=== PATIENT | male | born 1970 | race Caucasian/White ===

== ENCOUNTER 2021-06-29 22:43 | Emergency (ER) | payer OTHER, SELFPAY ==
[2021-06-29 22:44] VITALS: BP 140/94; PULSE 128; RESP 19; TEMP 37.3; O2SAT 93; BMI 45.3
[2021-06-29 22:45] VITALS: BP 140/94; PULSE 128; RESP 19; TEMP 37.3; O2SAT 93
--- NOTE | 2021-06-29 22:55 | EKG12_ITS ---
Test Reason : NAUSEA Blood Pressure : / mmHG Vent. Rate : 119 BPM Atrial Rate : 119 BPM P-R Int : 144 ms QRS Dur : 090 ms QT Int : 310 ms P-R-T Axes : 005 -35 023 degrees QTc Int : 436 ms Sinus tachycardia Left axis deviation Poor R wave progression Abnormal ECG Confirmed by SERA DOMINGO, LILIYA ([id number]), photographic editor KATHARINA MOSES ([id number]) on 07/02/2021 10:49:59 AM Referred By: ARI Confirmed By:LILIYA ZAMORA MD
--- NOTE | 2021-06-29 22:56 | ED.VIS.DYS ---
HPI <Dr. Isak Madsen DO - Last Filed: 06/30/21 00:09> History of Present Illness Chief Complaint: Cough Informant: patient and spouse/S.O. Narrative Narrative: 50-year-old male arrives to the emergency department chief complaint of COVID-19. He states he tested positive on his first day of symptoms on 1029 at [facility] [employer]. He reports that he is supposed to come to the hospital tomorrow and received a monoclonal antibody infusion. He did not receive a Covid vaccination. He tells me that since his diagnosis his signs and symptoms of just been worsening. His states that his cough is very rough. He notes his mouth is dry. Been having fevers body aches headaches. [facility] <Dr. Isak Madsen DO - Last Filed: 06/30/21 00:09> [facility] Medical History (Updated 06/30/21 @ 01:[address] Vineet Foley MD) COVID-19 Hypertension Home Medications albuterol sulfate [Ventolin HFA] 2 puff INHALATION Q4H PRN PRN #1 inhaler 06/29/21 [Rx Last Taken Unknown] dexamethasone 6 mg PO DAILY #5 tab 06/29/21 [Rx Last Taken Unknown] lisinopril 40 mg DAILY 06/29/21 [History Last Taken Unknown] Allergy/AdvReac Type Severity Reaction Status Date / Time Penicillins Allergy unknown Verified 06/29/21 15:54 Social History (Updated 06/29/21 @ 22:[address] Isak Madsen DO) Smoking Status: Never smoker substance use type: does not use ROS <Dr. Isak Madsen DO - Last Filed: 06/30/21 00:09> ROS ED Constitutional Constitutional ED: Reports chills, fever(s) and sweats; Denies weight loss Eyes Eyes: Denies change in vision or diplopia ENT ENT ED: Reports sore throat; Denies ear pain or rhinorrhea Cardiovascular Cardiovascular: Denies chest pain, orthopnea, palpitations or racing heartbeat Respiratory/Chest Respiratory/Chest: Reports cough, dyspnea and dyspnea on exertion; Denies orthopnea Gastrointestinal Gastrointestinal: Reports diarrhea and nausea; Denies abdominal pain or vomiting Genitourinary Genitourinary ED: Denies dysuria, hematuria or urinary frequency Musculoskeletal Musculoskeletal: Reports myalgias; Denies arthralgias Integumentary Denies abscess or rash Neurologic Neurologic: Reports headache(s); Denies weakness Psychiatric Psychiatric: Denies anxiety, depression, suicidal ideation or suicidal thoughts Endocrine Endocrinology: Denies polydipsia, polyphagia or polyuria Allergic/Immunologic Allergic/Immunologic ED: Denies mouth swelling, tongue swelling or urticaria EXAM <Dr. Isak Madsen DO - Last Filed: 06/30/21 00:09> Physical Exam Const Vital Signs: 06/29/21 22:44 06/29/21 22:45 06/29/21 23:31 Temperature 99.2 F H 99.2 F H Temperature Source Temporal Temporal Pulse Rate 128 H 128 H 120 H Respiratory Rate 19 H 19 H 17 Blood Pressure 140/94 H 140/94 H 119/87 H Blood Pressure Mean 109 109 97 Pulse Ox 93 93 95 Oxygen Delivery Method Room Air Room Air Room Air 06/30/21 00:05 06/30/21 01:19 Temperature 99.4 F H 99.4 F H Temperature Source Temporal Temporal Pulse Rate 117 H 116 H Respiratory Rate 19 H 28 H Blood Pressure 131/85 H 105/89 H Blood Pressure Mean 100 94 Pulse Ox 94 90 Oxygen Delivery Method Room Air Room Air Positive well nourished, well developed and obese General Appearance ED: well developed Nutritional Appearance: obese HEENT Reports normocephalic, head/scalp atraumatic, TM's clear and moist mucous membranes atraumatic Tympanic Membrane ED: Yes TM's clear Eyes PERRL and EOMs intact bilaterally Neck no lymphadenopathy, supple and no JVD Resp normal respiratory effort and clear to auscultation bilaterally Cardio regular rhythm and no murmurs Rate: tachycardic GI normal to inspection, nondistended, normoactive bowel sounds and non-tender Palpation: soft Back/Spine no CVA tenderness and normal ROM Extremity normal to inspection General Extremety ED: Negative for edema General Extremity: Negative for edema Neuro oriented x3 and CN's II-XII intact bilaterally Sensorium / Orientation: alert Motor Exam: strength 5/5 throughout Psych mental status grossly normal Mood & Affect: Negative for depressed or tearful Skin no rashes or lesions noted and no wounds <Dr. Vineet Foley MD - Last Filed: 06/30/21 01:52> Physical Exam Const Vital Signs: 06/29/21 22:44 06/29/21 22:45 06/29/21 23:31 Temperature 99.2 F H 99.2 F H Temperature Source Temporal Temporal Pulse Rate 128 H 128 H 120 H Respiratory Rate 19 H 19 H 17 Blood Pressure 140/94 H 140/94 H 119/87 H Blood Pressure Mean 109 109 97 Pulse Ox 93 93 95 Oxygen Delivery Method Room Air Room Air Room Air 06/30/21 00:05 06/30/21 01:19 Temperature 99.4 F H 99.4 F H Temperature Source Temporal Temporal Pulse Rate 117 H 116 H Respiratory Rate 19 H 28 H Blood Pressure 131/85 H 105/89 H Blood Pressure Mean 100 94 Pulse Ox 94 90 Oxygen Delivery Method Room Air Room Air [facility] <Dr. Isak Madsen, DO - Last Filed: 06/30/21 00:09> [facility] Lab Data Labs: Laboratory Results - last 24 hr 06/29/21 06/29/21 23:35 23:35 WBC 6.7 RBC 5.29 Hgb 16.0 Hct 47.9 MCV 90.5 MCH 30.2 MCHC 33.4 RDW Std Deviation 44.4 H RDW Coeff of Delfino 13.2 Plt Count 241 MPV 9.5 Immature Gran % (Auto) 0.900 Neut % (Auto) 72.2 H Lymph % (Auto) 16.1 L Hubbard % (Auto) 9.9 Eos % (Auto) 0.3 Baso % (Auto) 0.6 Absolute Neuts (auto) 4.8 Absolute Lymphs (auto) 1.08 Nucleated RBC % 0 Sodium 133 L Potassium 4.3 Chloride 99 Carbon Dioxide 27.0 Anion Gap 7 BUN 11 Creatinine 0.94 Estim Creat Clear Calc 97.07 Est GFR (MDRD) Af Amer 110 Est GFR (MDRD) Non-Af 91 BUN/Creatinine Ratio 11.8 Glucose 120 H Calcium 8.3 L Total Bilirubin 0.50 AST 46 H ALT 59 Alkaline Phosphatase 72 Troponin I High Sens 10 Total Protein 7.1 Albumin 2.7 L Globulin 4.4 H Albumin/Globulin Ratio 0.6 L Radiography Diagnostic Testing: Clinical Impression(s) from Imaging Studies Chest CTA 06/30/21 00:00 IMPRESSION: Negative CTA chest examination, without a demonstrated pulmonary embolism or arterial dissection. Diffuse multifocal bilateral pneumonitis. Electronically Signed: Tri Noriega MD at 0:50 EDT , Service support , EKG Initial EKG: Attestation: I personally reviewed and interpreted this EKG as follows: Comments: Sinus tachycardia with a ventricular rate of 119 bpm. <Dr. Vineet Foley MD - Last Filed: 06/30/21 01:52> [facility] MDM Narrative Medical decision making narrative: Patient checked out to me, his CT angiography of the chest shows no pulmonary embolus, he does have Covid pneumonitis bilaterally likely explaining his tachycardia which is down now to the 110-115 range. His fever was probably also contributing although it was just low-grade. His oxygen levels maintained in the 90s, although they are in the low 90s. At this point however, he does still meet criteria for the monoclonal antibody infusion which is scheduled for tomorrow. I advised him and the to get a home pulse oximeter so they can watch his oxygen levels and we discussed reasons to return for reevaluation, they are comfortable with that plan. Lab Data Attestation: I reviewed the patient's lab results. Labs: Laboratory Results - last 24 hr 06/29/21 06/29/21 23:35 23:35 WBC 6.7 RBC 5.29 Hgb 16.0 Hct 47.9 MCV 90.5 MCH 30.2 MCHC 33.4 RDW Std Deviation 44.4 H RDW Coeff of Delfino 13.2 Plt Count 241 MPV 9.5 Immature Gran % (Auto) 0.900 Neut % (Auto) 72.2 H Lymph % (Auto) 16.1 L Hubbard % (Auto) 9.9 Eos % (Auto) 0.3 Baso % (Auto) 0.6 Absolute Neuts (auto) 4.8 Absolute Lymphs (auto) 1.08 Nucleated RBC % 0 Sodium 133 L Potassium 4.3 Chloride 99 Carbon Dioxide 27.0 Anion Gap 7 BUN 11 Creatinine 0.94 Estim Creat Clear Calc 97.07 Est GFR (MDRD) Af Amer 110 Est GFR (MDRD) Non-Af 91 BUN/Creatinine Ratio 11.8 Glucose 120 H Calcium 8.3 L Total Bilirubin 0.50 AST 46 H ALT 59 Alkaline Phosphatase 72 Troponin I High Sens 10 Total Protein 7.1 Albumin 2.7 L Globulin 4.4 H Albumin/Globulin Ratio 0.6 L Radiography Diagnostic Testing: Clinical Impression(s) from Imaging Studies Chest CTA 06/30/21 00:00 IMPRESSION: Negative CTA chest examination, without a demonstrated pulmonary embolism or arterial dissection. Diffuse multifocal bilateral pneumonitis. Electronically Signed: Tri Noriega MD at 0:50 EDT , Service support , Discharge Plan Triage Chief Complaint: Cough ED Provider: Isak Madsen Dx/Rx/DC Orders Clinical Impression: Pneumonia due to COVID-19 virus Instructions: Coronavirus Disease 2019 (COVID-19): Caring for Yourself or Others Prescriptions: New dexamethasone 6 MG tablet 6 mg PO DAILY Qty: 5 RF: 0 albuterol sulfate [Ventolin HFA] 1 INHALER inhaler 2 puff inhalation Q4H PRN PRN (Reason: Wheezing) Qty: 1 RF: 0 No Action lisinopril 40 mg tablet 40 mg DAILY RF: 0 Primary Care Provider: Darrell Lang Referrals: Darrell Lang MD [Primary Care Provider] - As Needed Activity Restrictions/Additional Instructions: Try to get a home portable pulse oximeter and closely watch your oxygen levels periodically. If you stay below 90% for more than a minute or so, and/or you are feeling like your breathing is getting worse, return to the emergency department for further evaluation. Disposition Disposition: Home, Self Care
[2021-06-29 23:31] VITALS: BP 119/87; PULSE 120; RESP 17; O2SAT 95
[2021-06-29] MEDS: dexAMETHasone 4 MG Tablet 6 MG PO (23:31)
[2021-06-29 23:41] LABS: Absolute Lymphocyte Count 1.08 X10^3/uL (0.83-4.51); Absolute Neutrophil Count 4.8 X10^3/uL (2.0-7.7); Basophil# 0.04 X10^3/uL; Basophil% 0.6 % (0-1); Eosinophil# 0.02 X10^3/uL; Eosinophils% 0.3 % (0-5); Hematocrit 47.9 % (40-54); Lymphocyte # 1.08 X10^3/ul (0.83-4.51); Lymphocyte % 16.1 % (19-41); Mean Corp Hgb Conc 33.4 g/dL (32-36); Mean Corpuscular Hgb 30.2 pg (27.0-32.0); Mean Corpuscular Volume 90.5 fL (80-94); Mean Platelet Vol. 9.5 fl (6.2-12.0); Monocyte# 0.66 X10^3/uL; Monocyte% 9.9 % (0-10); NRBC Flagged by Analyzer 0 % (0-5); Neutrophil # 4.83 X10^3/uL (2.7-7.7); Neutrophil % 72.2 % (47-70); Platelet Count 241 K/mm3 (150-450); RBC Distribution Width CV 13.2 % (11.6-14.6); RBC Distribution Width SD 44.4 fl (35.1-43.9); Red Blood Count 5.29 M/mm3 (4.6-6.2); White Blood Count 6.7 K/mm3 (4.4-11.0)
--- NOTE | 2021-06-30 | CT_ITS ---
STUDY: CTA CHEST REASON FOR EXAM: Male, 50 years old. covid 19 pulmonary embolism RADIATION DOSAGE (If Supplied By Facility): CTDIvol = ( 12.67 ) mGy, DLP = ( 1078.92 ) mGycm TECHNIQUE: The examination was performed with the intravenous administration of IV 100mL Isovue-300. Post-processing of the angiographic images was performed, with multiplanar reformation and 3D reconstruction. Individualized dose optimization techniques were used for this CT. COMPARISON: None. FINDINGS: Exam is limited for evaluation of pulmonary arteries due to partially missed bolus is suboptimally opacified mid-distal pulmonary arteries. Normal enhancement of the main pulmonary artery and right and left pulmonary arteries. Normal enhancement of the bilateral peripheral pulmonary arteries. There is no demonstrated pulmonary embolism. Normal thoracic aorta and visualized great vessels. There is no demonstrated aortic dissection. Normal heart and pericardium. Normal mediastinum. Normal hilar regions. Normal visualized trachea and bronchi. The lungs are well expanded. Multiple bilateral groundglass opacities throughout the bilateral lung gonzalez compatible with diffuse multifocal pneumonitis. Normal pleura. Normal chest wall structures. There are degenerative changes of thoracic spine. Diffuse fatty liver, remainder of the upper abdominal structures are unremarkable. CT/CTA Chest W/WO Contrast IMPRESSION: Negative CTA chest examination, without a demonstrated pulmonary embolism or arterial dissection. Diffuse multifocal bilateral pneumonitis. Electronically Signed: Tri Noriega MD at 0:50 EDT , Service support ,
[2021-06-30 00:01] LABS: ALB/GLOB Ratio 0.6 RATIO (0.9-2.4); AST(SGOT) 46 U/L (15-37); Alanine Aminotransfer ALT/SGPT 59 U/L (16-61); Albumin, Serum 2.7 g/dL (3.2-5.0); Alkaline Phosphatase 72 U/L (45-117); Anion Gap 7 (5-15); BUN 11 mg/dL (7-18); BUN/Creat Ratio 11.8 RATIO (10-20); Calcium,Total 8.3 mg/dL (8.5-10.1); Chloride 99 mmol/L (98-107); Creatinine, Serum 0.94 mg/dL (0.70-1.30); EST Glomerular Filtration Rate 91 mL/min (>60); Est Glom Filt Rate - Afr Amer 110 mL/min (>60); Estimated Creatinine Clearance 97.07 ml/min; Globulin 4.4 g/dL (2.2-4.2); Glucose 120 mg/dL (74-106); Potassium 4.3 mmol/L (3.5-5.1); Protein, Total 7.1 g/dL (6.4-8.2); Sodium Level 133 mmol/L (136-145); Troponin-I HS 10 pg/mL (3.0-78.0)
[2021-06-30 00:05] VITALS: BP 131/85; PULSE 117; RESP 19; TEMP 37.4; O2SAT 94
[2021-06-30 01:19] VITALS: BP 105/89; PULSE 116; RESP 28; TEMP 37.4; O2SAT 90
[2021-06-30 02:03] VITALS: BP 110/93; PULSE 83; RESP 30; O2SAT 94
== END 2021-06-30 02:03 | disposition home or self-care (01) ==
PROVIDERS: Emergency Provider Emergency Medicine; PCP Family Medicine
DX: U07.1 COVID-19 (principal); J12.82 Pneumonia due to coronavirus disease 2019; I10 Essential (primary) hypertension; E66.9 Obesity, unspecified; Z79.899 Other long term (current) drug therapy
CPT/HCPCS: 71275; 80053; 84484; 85025; 93005; 96360; 96361; 99284; J7030; Q9967; A4216

== ENCOUNTER 2021-06-30 11:24 | Outpatient (CLI) | payer OTHER, SELFPAY ==
[2021-06-30] MEDS: 0.9% Saline Lock 10 ML Syringe IV (11:45)
[2021-06-30 11:46] VITALS: BP 145/98; PULSE 105; RESP 20; TEMP 36.4; O2SAT 95; BMI 45.1
[2021-06-30 12:35] VITALS: BP 127/92; PULSE 96; RESP 16; TEMP 36.7; O2SAT 95
[2021-06-30 13:35] VITALS: BP 125/81; PULSE 98; RESP 16; TEMP 36.6; O2SAT 98
== END 2021-06-30 13:35 | disposition home or self-care (01) ==
LOC: MS3OUT 11:25 → MS3 11:26
PROVIDERS: PCP Family Medicine; Visit Provider Nurse Practitioner Adult Health
DX: U07.1 COVID-19 (principal)
CPT/HCPCS: J7050; M0245; Q0245; A4216

== ENCOUNTER → 2023-01-31 | Outpatient (CLI) | payer OTHER, SELFPAY ==
[2023-01-31 18:06] LABS: Absolute Lymphocyte Count 1.96 X10^3/uL (0.83-4.51); Absolute Neutrophil Count 5.3 X10^3/uL (2.0-7.7); Basophil# 0.09 X10^3/uL; Basophil% 1.1 % (0-1); Eosinophils% 1.2 % (0-5); Hematocrit 48.8 % (40-54); Hemoglobin 15.5 g/dL (13.0-16.5); Lymphocyte # 1.96 X10^3/ul (0.83-4.51); Lymphocyte % 23.8 % (19-41); Mean Corp Hgb Conc 31.8 g/dL (32-36); Mean Corpuscular Hgb 30.1 pg (27.0-32.0); Mean Corpuscular Volume 94.8 fL (80-94); Mean Platelet Vol. 9.8 fl (6.2-12.0); Monocyte# 0.76 X10^3/uL; Monocyte% 9.2 % (0-10); NRBC Flagged by Analyzer 0 % (0-5); Neutrophil # 5.27 X10^3/uL (2.7-7.7); Neutrophil % 64.2 % (47-70); Platelet Count 329 K/mm3 (150-450); RBC Distribution Width CV 13.2 % (11.6-14.6); RBC Distribution Width SD 46.4 fl (35.1-43.9); Red Blood Count 5.15 M/mm3 (4.6-6.2); White Blood Count 8.2 K/mm3 (4.4-11.0)
[2023-01-31 18:28] LABS: Hemoglobin A1c 5.7 % (3.8-5.6)
[2023-01-31 18:36] LABS: ALB/GLOB Ratio 1.2 RATIO (0.9-2.4); AST(SGOT) 20 U/L (15-37); Alanine Aminotransfer ALT/SGPT 40 U/L (16-61); Albumin, Serum 3.8 g/dL (3.2-5.0); Alkaline Phosphatase 73 U/L (45-117); Anion Gap 9 (5-15); BUN 16 mg/dL (7-18); BUN/Creat Ratio 18.3 RATIO (10-20); Calcium,Total 9.2 mg/dL (8.5-10.1); Chloride 105 mmol/L (98-107); Creatinine, Serum 0.87 mg/dL (0.70-1.30); EST Glomerular Filtration Rate 97 mL/min (>60); Est Glom Filt Rate - Afr Amer 118 mL/min (>60); Globulin 3.2 g/dL (2.2-4.2); Glucose 93 mg/dL (74-106); Potassium 4.2 mmol/L (3.5-5.1); Sodium Level 140 mmol/L (136-145)
[2023-01-31 18:39] LABS: Microalbumin,Random Urine 69.3 mg/L (NO RANGE EST.); Microalbumin:Creatinine Ratio 47.1 mg/g CRE (<30 mg/g CRE)
== END | disposition home or self-care (01) ==
LOC: MFPLAB 16:08
PROVIDERS: PCP Family Medicine; Visit Provider Family Medicine
DX: I10 Essential (primary) hypertension (principal); E66.01 Morbid (severe) obesity due to excess calories
CPT/HCPCS: 36415; 80053; 82043; 82570; 83036; 84443; 85025

== ENCOUNTER → 2023-09-09 | Outpatient (CLI) | payer OTHER, SELFPAY ==
[2023-09-09 17:32] LABS: Absolute Lymphocyte Count 2.08 X10^3/uL (0.83-4.51); Basophil% 1.1 % (0-1); Eosinophil# 0.08 X10^3/uL; Eosinophils% 0.9 % (0-5); Hematocrit 48.4 % (40-54); Lymphocyte # 2.08 X10^3/ul (0.83-4.51); Lymphocyte % 22.2 % (19-41); Mean Corp Hgb Conc 33.1 g/dL (32-36); Mean Corpuscular Hgb 30.4 pg (27.0-32.0); Mean Corpuscular Volume 91.8 fL (80-94); Mean Platelet Vol. 9.4 fl (6.2-12.0); Monocyte# 0.98 X10^3/uL; Monocyte% 10.5 % (0-10); NRBC Flagged by Analyzer 0 % (0-5); Neutrophil # 6.03 X10^3/uL (2.7-7.7); Neutrophil % 64.4 % (47-70); Platelet Count 329 K/mm3 (150-450); RBC Distribution Width CV 13.4 % (11.6-14.6); RBC Distribution Width SD 45.4 fl (35.1-43.9); Red Blood Count 5.27 M/mm3 (4.6-6.2); White Blood Count 9.4 K/mm3 (4.4-11.0)
[2023-09-09 17:45] LABS: Microalbumin,Random Urine 12.1 mg/L (NO RANGE EST.); Microalbumin:Creatinine Ratio 35.7 mg/g CRE (<30 mg/g CRE)
[2023-09-09 18:03] LABS: AST(SGOT) 33 U/L (15-37); Alanine Aminotransfer ALT/SGPT 73 U/L (16-61); Albumin, Serum 3.8 g/dL (3.2-5.0); Alkaline Phosphatase 67 U/L (45-117); Anion Gap 9 (5-15); BUN 15 mg/dL (7-18); Calcium,Total 9.5 mg/dL (8.5-10.1); Chloride 100 mmol/L (98-107); Cholesterol 196 mg/dL (200); EST Glomerular Filtration Rate 83 mL/min (>60); Est Glom Filt Rate - Afr Amer 101 mL/min (>60); Globulin 3.8 g/dL (2.2-4.2); Glucose 121 mg/dL (74-106); High Density Lipoprotein 66 mg/dL; Potassium 3.6 mmol/L (3.5-5.1); Protein, Total 7.6 g/dL (6.4-8.2); Sodium Level 135 mmol/L (136-145); Triglycerides 98 mg/dL; Very Low Density Lipoprotein 20 mg/dL (5-40)
== END | disposition home or self-care (01) ==
PROVIDERS: PCP Family Medicine; Referring Provider Family Medicine; Visit Provider Family Medicine
DX: I10 Essential (primary) hypertension (principal); E66.01 Morbid (severe) obesity due to excess calories; Z13.220 Encounter for screening for lipoid disorders
CPT/HCPCS: 36415; 80053; 80061; 82043; 82570; 85025

== ENCOUNTER → 2023-12-12 | Outpatient (CLI) | payer OTHER, SELFPAY ==
[2023-12-12 18:33] LABS: ALB/GLOB Ratio 1.1 RATIO (0.9-2.4); AST(SGOT) 39 U/L (15-37); Alanine Aminotransfer ALT/SGPT 71 U/L (16-61); Albumin, Serum 3.6 g/dL (3.2-5.0); Alkaline Phosphatase 61 U/L (45-117); Anion Gap 9 (5-15); BUN 11 mg/dL (7-18); BUN/Creat Ratio 13.6 RATIO (10-20); Calcium,Total 8.6 mg/dL (8.5-10.1); Chloride 99 mmol/L (98-107); Creatinine, Serum 0.81 mg/dL (0.70-1.30); EST Glomerular Filtration Rate 106 mL/min (>60); Est Glom Filt Rate - Afr Amer 129 mL/min (>60); Globulin 3.3 g/dL (2.2-4.2); Glucose 92 mg/dL (74-106); PSA,Total - Annual Screen 2.25 ng/mL (0.00-4.00); Protein, Total 6.9 g/dL (6.4-8.2); Sodium Level 136 mmol/L (136-145)
[2023-12-12 18:48] LABS: Microalbumin,Random Urine 10.2 mg/L (NO RANGE EST.); Microalbumin:Creatinine Ratio 17.5 mg/g CRE (<30 mg/g CRE)
[2023-12-12 18:53] LABS: Hepatitis C Antibody Non-Reactive (Nonreactive)
== END | disposition home or self-care (01) ==
LOC: MTLAB 15:53
PROVIDERS: PCP Family Medicine; Referring Provider Family Medicine; Visit Provider Family Medicine
DX: I10 Essential (primary) hypertension (principal); Z12.5 Encounter for screening for malignant neoplasm of prostate; Z11.59 Encounter for screening for other viral diseases; R73.9 Hyperglycemia, unspecified
CPT/HCPCS: 36415; 80053; 82043; 82570; 83036; 84153; 86803; G0103

== ENCOUNTER 2024-02-19 06:11 | Day surgery (SDC) | payer OTHER, SELFPAY ==
[2024-02-19] VITALS (7 sets, daily range): BP systolic 96–154; BP diastolic 65–101; PULSE 74–95; RESP 16; TEMP 36.2–36.3; O2SAT 96–100; BMI 41.1
[2024-02-19] MEDS: Lactated Ringers 1,000 ML 15 ML IV (06:35)
[2024-02-19 07:06] LABS: Potassium 3.1 mmol/L (3.5-5.1)
--- NOTE | 2024-02-19 07:20 | HP.PCM_ITS ---
History and Physical Date of Admission: 02/19/24 Date of Service: 10/24/23 MR#: [id number] Acct: [id number] Name: FAITH GARCIA Rep #: [id number] : 1970 Provider: Dr. Stevie Salgado MD Age/Sex: 53/M Location: [facility] Status: Signed Intake Vital Signs 06/30/2111:46 10/23/2413:48 10/23/2413:48 10/23/2414:33 Height 5 ft 10 in 5 ft 10 in Weight: 320 lb BMI 45.9 BP 174/110 H 208/137 H 176/105 H Blood Pressure Location Rt brachial Lt brachial Rt brachial Position Sitting Sitting Sitting Respiration 18 Intake Visit Reasons: UMBILICAL HERNIA / COLONOSCOPY Chief Complaint: umbilical hernia [employer] Required: No Is patient in pain?: No Allergies Penicillins Allergy (Verified 10/24/23 14:49) unknown Medications amlodipine 5 mg tablet 5 mg PO DAILY 10/24/23 [History Confirmed 10/24/23] indapamide 2.5 mg tablet 2.5 mg PO QAM 10/24/23 [History Confirmed 10/24/23] ramipril 10 mg capsule 10 mg PO DAILY 10/24/23 [History Confirmed 10/24/23] PFSH Medical History (Updated 10/24/23 @ 16:[address] Stevie Salgado MD) COVID-19 Hypertension Umbilical hernia Surgical History (Updated 10/24/23 @ 14:47 by Rachel Gongora) S/P vasectomy Social History (Updated 10/24/23 @ 14:48 by Rachel Gongora) Smoking Status: Never smoker alcohol intake: current substance use type: does not use HPI HPI HPI: Patient is a 53 male who presents for need to schedule screening colonoscopy secondary to age and no previous evaluation. They are referred for surgical consultation from Dr. Lang. They describe their bowel habits as normal. They have approximately 2-3 bowel movements per day and spend roughly 1-2 minutes on the toilet without significant straining. They have not noticed recent bleeding or dark stools. They do not regularly take fiber supplements. They do consume significant fiber in their regular diet. Patient has no family history of colon cancer.. The patient's weight is stable. The patient is not prescribed anticoagulants/blood thinners. Relevant prior abdominal surgical history includes: None Patient does not have a significant history of GERD/heartburn. Additionally, patient presents for evaluation of a umbilical hernia that is not previously undergone surgical evaluation. This finding was first noticed by patient at least 3 years ago. Patient is not able to recall how this occurred, however, he notes that he cuts a lot of firewood and blames this kind of activity for its existence. He initially denies any pain or growth but then retracts his statement about growth and remarks that has grown in size over the 3 years that he first noticed it. Patient has no personal history of smoking. Patient does have a history of hypertension and today his blood pressure is quite uncontrolled with readings of 174-208 systolic over 110-137 diastolic. He denies any symptoms of headache or vision changes. He confesses that he is known to do this whenever he goes to the doctor. ROS General General: No weight change, appetite, fatigue, colon cancer, breast cancer or weakness HEENT HEENT: No difficulty swallowing, eye injury, eye surgery, swollen glands or hoarseness Endo Endocrine: No thyroid disease, diabetes mellitus, thyroid cancer, Hair loss, heat intolerance or cold intolerance Skin Skin: No rash or changing moles Breast Breast: No left breast lump, right breast lump, nipple discharge, breast pain, abnormal mammogram, abnormal US or breast enlargement Musc Musculoskeletal: No back problems, arthritis, rheumatoid arthritis, gout or j oint pain Cardio Cardiovascular: Yes high blood pressure; No murmur, pacemaker, heart disease, atrial fibrillation, heart attack, heart stent, palpitations, shortness of breat with exertion or chest pain Psych Psychiatric: No depression, anxiety or hearing voices Resp Respiratory: No shortness of breath, No sleep apnea, No cough, No COPD, No asthma, No emphysema and No wheezing Gastro Gastrointestinal: No abdominal pain, No nausea or vomiting, No diarrhea, No constipation, No blood in stool, No acid reflux, No hemorrhoids, No ulcers, No gallbladder problem and No black,tarry stools Vadim Hematologic: No blood thinners, No blood disorders, No bleeding, No anemia and N o blood clots Neuro Neurologic: No system reviewed and no additional complaints, except as documented, No as per HPI, No abnormal gait, No abnormal hearing, No abnormal movements, No abnormal speech, No behavioral changes, No burning sensations, No confusion, No convulsions, No disequilibrium, No dizziness, No localized weakness, No frequent falls, No headache(s), No lack of coordination, No loss of vision, No memory loss, Yes numbness, No other visual disturbances, No radicular pain, No restless legs, No sensory deficit, No syncope, Yes tingling, No tremor(s), No weakness and No other Exam Const General: cooperative Orientation: alert, awake and oriented x3 Resp Effort & Inspection: normal respiratory effort GI Palpation: soft, hernia umbilical (With chronically incarcerated fat that is soft and partially reducible) and nontender Assessment and Plan Assessment and Plan (1) Screening for colon cancer: Status: Acute Comment: Patient 53-year-old male who is referred for screening colonoscopy. He has had no prior colon cancer screening. As per his HPI he does appear to be at average risk for colon cancer. He denies any present concerns with his bowel function. He states that he has simply been prompted by his and his PCP and finally decided to move forward with the procedure. He is anxious about moving forward but we discuss logistics around him taking off work and the prep and he reports that he is comfortable with these instructions. Plan: Plan will be to complete colonoscopy on first mutually agreeable date under local MAC. Pre-procedure prep discussed and paper instructions provided. Patient is also made aware that he will need to have a water truck driver with him the day of the procedure. (2) Umbilical hernia: Status: Chronic Comment: This is a 53-year-old male with chronic (been present at least 3 years) umbilical hernia that is asymptomatic. Patient has noticed some growth. By exam this is at least partially incarcerated with omental fat. It does not cause tenderness on exam. I did discuss with patient that I would recommend having this repaired in the long-term, however, he is presently obese with a BMI of over 45. I shared with him that his risk for recurrence would be rather high and, generally, the risk rises rather exponentially beyond a BMI of 40. Given patient's present hide he would need to make a weight of 275 pounds or less to reach this BMI. I have tried to encourage him to seek healthy lifestyle changes and shared that this weight loss would likely also translate to better control of his blood pressure. He states that he is given some thought to this but has never been able to fully change some of his habits. In the meantime I did give him red flag warning signs that would be suggestive of either bowel incarceration or strangulation. Plan: ? Watchful waiting for now but patient is encouraged to seek repair in the long run and try to achieve a healthier weight prior to undergoing this repair. I have examined the patient and the H&P has been reviewed. There are no clinical changes since date of exam. Patient confirms that he completed his prep without difficulty and that his output is now clear. He also reports that he has been taking strides to lose some weight so that he can be a better candidate for umbilical hernia repair. Will now proceed to endoscopy suite for colonoscopy as scheduled.
--- NOTE | 2024-02-19 07:30 | COLBX_PTH ---
PATIENT: FAITH GARCIA LOC: EN U#:[id number] AGE/SX: 53/M ROOM: RE02/19/[address]: Dr. Stevie Salgado MD : 1970 BED: DIS: 02/19/2024 SPEC #: [id number] RECD: 02/19/24 09:27 STATUS: BRIANNA JONATHAN #: [id number] DERREK: 02/19/24 07:[address]: Stevie Salgado DEPT: SURGICAL PATHOLOGY RECD BY: Leela Singh ENTERED: 02/19/24 11:00 SP TYPE: COLON BX OTHR DR: Dr. Darrell Lang MD Tissues: Sigmoid colon biopsy Procedures: Surgery Specimen Level IV HEADER OPERATION: Colonoscopy, polypectomy PRE-OP DIAGNOSIS: Screening for colon cancer, umbilical hernia TISSUE SUBMITTED: Sigmoid polyp MICROSCOPIC DIAGNOSIS Sigmoid polyp, polypectomy: Fragments of tubular adenoma. JARETH/ 02/20/2024 MICROSCOPIC DESCRIPTION Slides are reviewed. GROSS DESCRIPTION Received in fixative is one container labeled with the patient's name and designated Sigmoid polyp. The specimen consists of multiple irregular fragments of light briones soft tissue that in aggregate measure 0.8 x 0.3 x 0.1 cm. The specimen is totally submitted in one cassette. JARETH/ 02/19/2024 TC:1 CPT:55721
--- NOTE | 2024-02-19 08:11 | PCM.POST.ANE ---
Anesthesia: Postop Eval I Current Vital Signs Temperature: 97.2 F Pulse Rate: 84 Blood Pressure: 96/65 Respiratory Rate: 16 Pulse Ox: 100 Oxygen Delivery Method: Room Air Assessment Airway patent: Yes Spontaneous unlabored respirations: Yes Mental status: Awake and Calm nausea: No Vomiting: No Anesthesia Complication: No Fluid Hydration Crystalloid volume administer (ml): 800 Total IV fluid infused: 800 Progress Note Anesthesia document: Postop Eval 1 completed: Yes
--- NOTE | 2024-02-19 08:13 | OP.COLON_ITS ---
Patient Name: Franck Harden Procedure Date: 02/19/2024 7:15 AM Date of : 1970 Age: 53 Procedure: Colonoscopy Indications: Screening for colorectal malignant neoplasm Providers: Stevie Salgado MD Referring MD: Darrell Lang Medicines: See the Anesthesia note for documentation of the administered medications Patient Profile: Last Colonoscopy: none. The patient's first colonoscopy is today. Complications: No immediate complications. Estimated blood loss: Minimal. Procedure: Pre-Anesthesia Assessment: - The heart rate, respiratory rate, oxygen saturations, blood pressure, adequacy of pulmonary ventilation, and response to care were monitored throughout the procedure. After I obtained informed consent, the scope was passed under direct vision. Throughout the procedure, the patient's blood pressure, pulse, and oxygen saturations were monitored continuously. The Colonoscope was introduced through the anus and advanced to the ileocecal valve. The colonoscopy was performed without difficulty. The patient tolerated the procedure well. The quality of the bowel preparation was adequate to identify polyps greater than 5 mm in size. Scope In: 7:43:11 AM Scope Withdrawal Time 0 hours 14 minutes 30 seconds Scope Out: 8:05:31 AM Total Procedure Duration Time 0 hours 22 minutes 20 seconds Findings: The perianal and digital rectal examinations were normal. A 12 mm polyp was found in the sigmoid colon. The polyp was semi-pedunculated. The polyp was removed with a hot snare. Resection and retrieval were complete. Estimated blood loss was minimal. Multiple small and large-mouthed diverticula were found in the sigmoid colon and descending colon. No biopsies or other specimens were collected for this exam. The exam was otherwise without abnormality on direct and retroflexion views. Impression: - One 12 mm polyp in the sigmoid colon, removed with a hot snare. Resected and retrieved. - Diverticulosis in the sigmoid colon and in the descending colon. No specimens collected. - The examination was otherwise normal on direct and retroflexion views. Recommendation: - Discharge patient to home (via wheelchair). - High fiber diet today. - No aspirin, ibuprofen, naproxen, or other non-steroidal anti-inflammatory drugs for 2 days after biopsy. - Await pathology results. - Repeat colonoscopy date to be determined after pending pathology results are reviewed for surveillance based on pathology results. - Telephone my office for pathology results in 1 week. Procedure Code(s): --- Professional --- 64001, Colonoscopy, flexible; with removal of tumor(s), polyp(s), or other lesion(s) by snare technique Diagnosis Code(s): --- Professional --- Z12.11, Encounter for screening for malignant neoplasm of colon D12.5, Benign neoplasm of sigmoid colon K57.30, Diverticulosis of large intestine without perforation or abscess without bleeding CPT copyright 2021 [employer]. All rights reserved. The codes documented in this report are preliminary and upon ecg technician review may be revised to meet current compliance requirements. Stevie Salgado MD 02/19/2024 8:13:20 AM This report has been signed electronically. Number of Addenda: 0 Note Initiated On: 02/19/2024 7:15 AM
--- NOTE | 2024-02-19 08:13 | OP.CCLET_ITS ---
02/19/2024 Darrell Lang [address] [facility] [address] [place] [address] Re : Colonoscopy procedure for Franck Dereck Dear Dr. Lang This procedure was performed on January. My impressions and recommendations are as follows: Impressions : - One 12 mm polyp in the sigmoid colon, removed with a hot snare. Resected and retrieved. - Diverticulosis in the sigmoid colon and in the descending colon. No specimens collected. - The examination was otherwise normal on direct and retroflexion views. Recommendations : - Discharge patient to home (via wheelchair). - High fiber diet today. - No aspirin, ibuprofen, naproxen, or other non-steroidal anti-inflammatory drugs for 2 days after biopsy. - Await pathology results. - Repeat colonoscopy date to be determined after pending pathology results are reviewed for surveillance based on pathology results. - Telephone my office for pathology results in 1 week. My findings are described in the full procedure note, which is enclosed. If I can be of further assistance, please feel free to contact me at Doctor phone number(s): , Work: . Sincerely, Stevie Salgado MD 02/19/2024 8:13:20 AM This report has been signed electronically.
--- NOTE | 2024-02-19 08:15 | PCM.POSTANE2 ---
Anesthesia Postop Eval I Sum Postop Eval Completion status Anesthesia document: Postop Eval 1 completed: Yes Anesthesia Postop Eval I Summary Anesthesia Postop Eval I Summary: Anesthesia Postop Eval I: Assessment Summary Airway patent Yes 02/19/24 08:14 Spontaneous unlabored Yes 02/19/24 08:14 respirations Mental status Awake,Calm 02/19/24 08:14 nausea No 02/19/24 08:14 Vomiting No 02/19/24 08:14 Anesthesia Postop Eval I: Fluid Summary Crystalloid volume administer 800 02/19/24 08:14 (ml) Colloids volume administered ( ml) Blood Product volume administered (ml) Total IV fluid infused 800 02/19/24 08:14 Anesthesia Postop Eval I: Summary Notes Anesthesia Complication No 02/19/24 08:14 Anesthesia Complication Comment: Post-operative progress note Anesthesia: Postop Eval II Evaluation Mental status: Awake Pain Level: 0 nausea: No Vomiting: No Complications Anesthesia Complication: No
--- NOTE | 2024-02-19 08:16 | PCM.PRE.AN2 ---
ASA Classification* ASA Classification ASA Classification: 3 Assessment & Plan Anesthesia* Anesthesia Assessment Anesthesia Assessment: Discussed sedation and/or anesthesia options, risks, benefits, and alternatives with patient/parents/legal guardian/POA. Questions invited. The patient/parents/legal guardian/POA seems to understand and agrees to proceed with anesthesia plan. Reviewed the physical assessment, medical history, allergy history and patient home medications list prior to surgery/procedure/anesthetic and documented any changes. Performed airway and anesthesia risk assessments. Procedural Plan Procedural Plan:: Proceed w/ Anesthesia plan Anesthesia Type Anesthesia Type: MAC (see written pre anesthesia record for full assessment) Anesthesia Focused Assessment* Temperature: 97.2 F Pulse Rate: 74 Blood Pressure: 113/66 Respiratory Rate: 16 Pulse Ox: 97 Airway Assessment Mouth opens: >3 cm Mallampati Score: III Focused Labs Anesthesia Preop lab: CBC WBC 9.4 K/mm3 (4.4-11.0) 09/09/23 16:03 RBC 5.27 M/mm3 (4.6-6.2) 09/09/23 16:03 Hgb 16.0 g/dL (13.0-16.5) 09/09/23 16:03 Hct 48.4 % (40-54) 09/09/23 16:03 Plt Count 329 K/mm3 (150-450) 09/09/23 16:03 CHEMISTRY Potassium 3.1 mmol/L (3.5-5.1) L 02/19/24 06:41 Sodium 136 mmol/L (136-145) 12/12/23 16:04 BUN 11 mg/dL (7-18) 12/12/23 16:04 Creatinine 0.81 mg/dL (0.70-1.30) 12/12/23 16:04 Glucose 92 mg/dL (74-106) 12/12/23 16:04 TSH 1.30 uIU/mL (0.358-3.74) 01/31/23 16:12 COAG Pre-Assessment Diagnosis/Proposed Procedure Planned Operative Procedure(s): COLONOSCOPY Anesthesia History Anesthesia History - line maintainer section: Anesthesia History - line maintainer section Hx Hospitalization No 02/13/24 15:54 Any Problems With Anesthesia No 02/13/24 15:54 Cholinesterase deficiency No 02/13/24 15:54 You/Your Family Experience No 02/13/24 15:54 fever (hyperthermia) with Relationship Recent Exposure to Contagious No 02/19/24 06:31 Disease Does patient have nerve No 02/13/24 15:54 stimulator Patient instructed to have device shut off --Does patient have Pacemaker No 02/19/24 06:31 or ICD? When Was Last Pacemaker Check QUESTION #4 FULL TEXT: You/Your Family Experience fever (hyperthermia) with Anesthesia Last Oral Intake Last Oral intake: Last Oral Intake NPO since 22:00 02/19/24 06:31 Meds taken in AM with sips of water? Meds patient instructed to take am of surgery PONV PONV - line maintainer section: PONV - line maintainer section Female No 02/13/24 15:54 HX of Motion Sickness No 02/13/24 15:54 HX of N/V After Surgery No 02/13/24 15:54 Non-Smoker Yes 02/13/24 15:54 Duration of Surgery greater Yes 02/13/24 15:54 than 60 minutes Number of Risk Factors 2 02/13/24 15:54 PONV Score Moderate Risk 02/13/24 15:54 Height & Weight Height & Weight: Anesthesia: Height & Weight Height 5 ft 10 in 02/19/24 06:31 Weight: 130 kg 02/19/24 06:31 Body Mass Index (BMI) 41.1 02/19/24 06:31 Respiratory Assessment Respiratory Assessment - line maintainer section: Respiratory Tract Infection Hx - line maintainer section Hx Respiratory Tract Infection No 02/13/24 15:54 STOP Sleep Apnea STOP Sleep Apnea - line maintainer section: STOP Sleep Apnea - line maintainer section Hx Hypertension Yes: WORKING ON GETTING IT 02/13/24 15:54 LOWER WITH PCP Hx Sleep Apnea No 02/13/24 15:54 CPAP BIPAP Do you snore loudly (louder Yes 02/13/24 15:54 than talking or can be heard Do you often feel tired/ No 02/13/24 15:54 fatigued/ sleepy during daytime? Has anyone observed you stop Yes 02/13/24 15:54 breathing during sleep? STOP Results Positive 02/19/24 08:10 QUESTION #5 FULL TEXT : Do you snore loudly (louder than talking or can be heard through closed doors)? Tobacco Use History Tobacco Use History - line maintainer section: Tobacco Use History - line maintainer section Tobacco Use Smoking Status Never smoker 02/13/24 15:54 Hx Tobacco Use No 02/13/24 15:54 Years Smoking Packs Smoked per Day Smoking Cessation Date was within the last 15 years Hx Smoking Cessation Date Hx Smoking Cessation Counseling Hematologic Medial History Hematologic Hx - line maintainer section: Hematologic Medical Hx - operations manager/coordinator Hx of Blood Transfusion No 02/13/24 15:54 Hx of Transfusion in last 3 No 02/13/24 15:54 Months Date of Last Transfusion (if within last 3 months) Ever experience any problems No 02/13/24 15:54 with transfusion(s)? Specify any problems Hx of Preganancy in last 3 N/A 02/13/24 15:54 Months Nurse Filling Out Transfusion MGRIFFITH 02/13/24 15:54 & Questions: Date: 02/13/24 02/13/24 15:54 Time: 15:56 02/13/24 15:54 Patient unable to answer at this time (ie. confused, unrespo /Reproduction History /Reproductive History - line maintainer section: /Reproductive Hx- line maintainer section Hx Now Gestational Age (in weeks): EDC: Hx Hx Para Hx Section SAB Active Medications Active Medications: Current Medications Generic Name Dose Route Start Last Admin Trade Name Freq PRN Reason Stop Dose Admin Lactated Ringer's 1,000 mls @ 15 mls/hr 02/19/24 06:30 02/19/24 08:16 IV Infused .Q48H TUYET Infusion PFSH Medical History Alcohol use History of edema Non-smoker Umbilical hernia Hypertension COVID-19 Home Medications ?Medication ?Instructions ?Recorded ?Last Taken ?Type amlodipine 5 mg tablet 5 mg PO .SUPPER 10/24/23 Unknown History indapamide 2.5 mg tablet 2.5 mg PO .SUPPER 10/24/23 Unknown History ramipril 10 mg capsule 10 mg PO .SUPPER 10/24/23 Unknown History magnesium oxide 400 mg (241.3 mg 400 mg PO .SUPPER 02/13/24 Unknown History magnesium) tablet peg 3350-electrolytes 236 240 ml PO Q10M #4,000 mL 02/13/24 Unknown Rx gram-22.74 gram-6.74 gram-5.86 gram solution (Golytely) potassium citrate 10 mEq (1,080 10 meq PO .SUPPER 02/13/24 Unknown History mg) tablet,extended release Allergy/AdvReac Type Severity Reaction Status Date / Time Penicillins Allergy unknown Verified 02/19/24 06:31 Surgical History S/P vasectomy Social History Smoking Status: Never smoker alcohol intake: current substance use type: does not use Review of Systems (Anesthesia) ROS Narrative System reviewed and no additional complaints, except as documented.
== END 2024-02-19 08:36 | disposition home or self-care (01) ==
LOC: EN 06:11 → AC 06:11
PROVIDERS: Anesthesiology; PCP Family Medicine; Referring Provider Family Medicine; Visit Provider Surgery
PROC: 0DJD8ZZ Inspection of Lower Intestinal Tract, Via Natural or Artificial Opening Endoscopic (ICD-10-PCS; CPT 45378; principal; 2024-02-19 07:25)
DX: Z12.11 Encounter for screening for malignant neoplasm of colon (principal); K57.30 Diverticulosis of large intestine without perforation or abscess without bleeding; I10 Essential (primary) hypertension; K42.9 Umbilical hernia without obstruction or gangrene; D12.5 Benign neoplasm of sigmoid colon; Z79.899 Other long term (current) drug therapy; E66.9 Obesity, unspecified
CPT/HCPCS: 45385; 84132; 88305; J7120; J2405

== ENCOUNTER → 2024-04-08 | Outpatient (CLI) | payer OTHER, SELFPAY ==
[2024-04-08 18:31] LABS: ALB/GLOB Ratio 1.1 RATIO (0.9-2.4); AST(SGOT) 30 U/L (15-37); Alanine Aminotransfer ALT/SGPT 66 U/L (16-61); Albumin, Serum 3.8 g/dL (3.2-5.0); Alkaline Phosphatase 61 U/L (45-117); Anion Gap 9 (5-15); BUN 12 mg/dL (7-18); BUN/Creat Ratio 14.9 RATIO (10-20); Calcium,Total 9.1 mg/dL (8.5-10.1); Chloride 100 mmol/L (98-107); Creatinine, Serum 0.81 mg/dL (0.70-1.30); EST Glomerular Filtration Rate 106 mL/min (>60); Est Glom Filt Rate - Afr Amer 129 mL/min (>60); Globulin 3.6 g/dL (2.2-4.2); Glucose 96 mg/dL (74-106); Magnesium 2.3 mg/dL (1.6-2.6); Potassium 3.5 mmol/L (3.5-5.1); Protein, Total 7.4 g/dL (6.4-8.2); Sodium Level 137 mmol/L (136-145)
== END | disposition home or self-care (01) ==
LOC: MFPLAB 16:40
PROVIDERS: PCP Family Medicine; Visit Provider Family Medicine
DX: E87.6 Hypokalemia (principal); I10 Essential (primary) hypertension
CPT/HCPCS: 36415; 80053; 83735